=== PATIENT | female | born 1965 | race African-American/Black ===

== ENCOUNTER → 2017-09-21 | Outpatient (CLI) | payer BC ==
[~2017-09-21] VITALS: Ht 165.1 cm; Wt 71.2 kg
[~2017-09-21] MED LIST: FORTAMET1000 M1 PO; GLUCOTROL XL2.5 MG PO; INVOKANA100 MG PO; LIPITOR40 MG PO; LO-DOSE ASPIRIN81 M1 PO; METOPROLOL TART50 MG PO; MULTI VITAMIN1 EACH PO; ZESTRIL40 MG PO; ZYRTEC10 M2 PO
[2017-09-21 08:27] LABS: POINT-OF-CARE METER ID UU14107333
[2017-09-21 08:38] LABS: ANION GAP 8 MEQ/L (2-14); CHLORIDE 103 MEQ/L (99-109); POTASSIUM 4.1 MEQ/L (3.7-5.4); SAMPLE HEMOLYSIS CHECK 0; SAMPLE ICTERIC CHECK 0; SAMPLE LIPEMIA CHECK 0; SODIUM 138 MEQ/L (136-147)
[2017-09-21 08:43] LABS: GFR ESTIMATE (CALCULATED) > 59 mL/min/; GLUCOSE 109 mg/dL (70-99); UREA NITROGEN (BUN) 13 mg/dL (9-23)
== END | disposition home or self-care (01) ==
LOC: AMB 07:13
PROVIDERS: Internal Medicine
PROC: 0DJD8ZZ Inspection of Lower Intestinal Tract, Via Natural or Artificial Opening Endoscopic (ICD-10-PCS; principal; 2017-09-21)
DX: Z12.11 Encounter for screening for malignant neoplasm of colon (principal)
CPT/HCPCS: 80048; 82948; J2250